=== PATIENT | male | born 1950 | race Caucasian/White ===

== ENCOUNTER → 2020-11-02 14:45 | Outpatient (CLI) | payer MEDICARE, SELFPAY ==
[2020-11-02 15:20] LABS: BNP,B-Type NATRIURETIC PEPTIDE 1481.4 pg/mL (0-100)
== END ==
PROVIDERS: PCP Internal Medicine; Referring Provider Nurse Practitioner; Visit Provider Nurse Practitioner
DX: R06.02 Shortness of breath (principal); R53.81 Other malaise; R53.83 Other fatigue; M79.89 Other specified soft tissue disorders
CPT/HCPCS: 83880

== ENCOUNTER 2021-02-08 05:51 | Inpatient (IN) | payer MEDICARE, SELFPAY ==
[2021-02-08] VITALS (57 sets, daily range): BP systolic 78–131; BP diastolic 33–81; PULSE 28–87; RESP 10–34; TEMP 29.4–36.2; O2SAT 76–100; BMI 32.2; BMI 33.7
--- NOTE | 2021-02-08 06:03 | ED.RN ---
CALLED FOR EKG PER RN REQUEST, NO OLD EKGS IN MUSE
--- NOTE | 2021-02-08 06:08 | EKG12_ITS ---
Test Reason : HEART RATE Blood Pressure : / mmHG Vent. Rate : 086 BPM Atrial Rate : 082 BPM P-R Int : 000 ms QRS Dur : 118 ms QT Int : 464 ms P-R-T Axes : 000 -44 126 degrees QTc Int : 555 ms Accelerated Junctional rhythm with occasional Premature ventricular complexes Left axis deviation Incomplete right bundle branch block Marked ST abnormality, possible lateral subendocardial injury Prolonged QT Inferior [place], age undetermined, cannot be excluded Abnormal ECG Confirmed by STACEY CAO, MARGARITO ([id number]), manager editorial HAIDER PEREA ([id number] on 02/15/2021 8:21:06 AM Referred By: SHANNA Confirmed By:MARGARITO IBARRA MD
[2021-02-08] MEDS: Dextrose 50%-Water 25 GM/50 ML DISP.SYRIN IV ×2 (06:10→07:55)
--- NOTE | 2021-02-08 06:12 | RAD_ITS ---
STUDY: X-RAY CHEST REASON FOR EXAM: Male, 70 years old. Hypoxia TECHNIQUE: Single AP portable view of the chest. COMPARISON: None. FINDINGS: There are small to moderate bilateral pleural effusions with overlying atelectasis or infiltration in the lower lobes bilaterally. There is interstitial prominence noted of the lung mcduffie which may represent CHF. The heart is enlarged. Normal mediastinum and chaparro. Normal visualized aortic arch and descending thoracic aorta. There are no demonstrated acute fractures or destructive bone lesions. There is no demonstrated abnormality of the visualized soft tissue structures of the upper abdomen. RAD/Chest 1 View (Portable) IMPRESSION: Bilateral pleural effusions with overlying atelectasis or infiltration in the lower lung mcduffie. Interstitial prominence, possibly representing CHF. Cardiomegaly. Electronically Signed: Manpreet Adair MD at 7:52 EDT , Service support ,
--- NOTE | 2021-02-08 06:12 | EKG12_ITS ---
Test Reason : HEART RATE Blood Pressure : / mmHG Vent. Rate : 080 BPM Atrial Rate : 073 BPM P-R Int : 000 ms QRS Dur : 120 ms QT Int : 454 ms P-R-T Axes : 000 230 047 degrees QTc Int : 523 ms Suspect arm lead reversal, interpretation assumes no reversal Wide QRS rhythm Right bundle branch block Lateral infarct , age undetermined Inferior infarct , age undetermined Abnormal ECG Recommend Repeat EKG Confirmed by STACEY CAO, MARGARITO ([id number]), film editor supervisor RONA ROCHA ([id number]) on 02/10/2021 12:41:06 PM Referred By: SHANNA Confirmed By:MARGARITO IBARRA MD
[2021-02-08 06:17] LABS: Absolute Lymphocyte Count 0.63 X10^3/uL (0.83-4.51); Absolute Neutrophil Count 5.5 X10^3/uL (2.0-7.7); Basophil# 0.01 X10^3/uL; Basophil% 0.1 % (0-1); Eosinophil# 0.04 X10^3/uL; Eosinophils% 0.6 % (0-5); Hematocrit 35.5 % (40-54); Hemoglobin 10.6 g/dL (13.0-16.5); Lymphocyte # 0.63 X10^3/ul (4.0); Lymphocyte % 9.4 % (19-41); Mean Corp Hgb Conc 29.9 g/dL (32-36); Mean Corpuscular Hgb 30.1 pg (27.0-32.0); Mean Corpuscular Volume 100.9 fL (80-94); Mean Platelet Vol. 12.6 fl (6.2-12.0); Monocyte# 0.49 X10^3/uL; Monocyte% 7.3 % (0-10); NRBC Flagged by Analyzer 0.3 % (0-5); Neutrophil # 5.48 X10^3/uL (2.7-7.7); Neutrophil % 82.3 % (47-70); POSITIVE MORPHOLOGY YES; Platelet Count 125 K/mm3 (150-450); RBC Distribution Width CV 18.9 % (11.6-14.6); RBC Distribution Width SD 70.2 fl (35.1-43.9); Red Blood Count 3.52 M/mm3 (4.6-6.2); White Blood Count 6.7 K/mm3 (4.4-11.0)
[2021-02-08 06:18] LABS: Differential Indicated SCAN CRITERIA MET
--- NOTE | 2021-02-08 06:18 | ED.DCSUM_ITS ---
History of Present Illness Chief Complaint: Weakness Informant: Patient, Family Narrative: Patient is a 70-year-old male with a past medical history of CAD, hypertension, CKD, diabetes who presents to the emergency department for multiple issues. The at bedside provides majority of the history. She states that ever since getting coronavirus infection in September he has progressively been getting worse. These new issues have been possibly getting worse over the past few weeks to a month. He has not had a bowel movement in the past week. They have been giving him MiraLAX and magnesium citrate which has not helped. He has been eating very little since he got the Covid infection. For the past few weeks he has been very slow with his responses. He has been getting generally weaker and not able to ambulate around the house anymore. He has had significant swelling of his lower extremities. Recently he had a televisit with his PCP and was diagnosed with anasarca and put on doxycycline for lower extremity cellulitis. Patient has been on 3 L of supplemental oxygen since September although they have increased this due to low pulse ox at home lately. They have also noticed that his heart rate was very on the pulse ox today. At time of arrival patient is alert and oriented but is very delayed with his responses. He denies having any pain or shortness of breath. No chest pain, palpitations. He denies any abdominal pain. He denies any headache. No nausea or vomiting. He has not been coughing. He is alert but take some time to answer questions. Past Medical History - Allergies and Home Meds Allergies/Adverse Reactions: Allergies No Known Allergies Allergy (Verified 02/08/21 06:01) Primary Care Physician: Dallas Nance MD [Primary Care Provider] - Prior records reviewed: Yes Surgical History: vitrectomy of the left eye, kidney stone removal with basket extraction Smoking Status: Never smoker Review of Systems All systems negative except as indicated General: Denies: Chills, Fever Eyes: Denies: Visual changes - bilaterally, Diplopia ENT: Denies: Rhinorrhea, Sore throat Cardiovascular: Denies: Chest pain, Palpitations Respiratory: Reports: Dyspnea. Denies: Cough, Dyspnea on exertion Gastrointestinal: Reports: Constipation. Denies: Abdominal pain, Nausea, Vomiting, Diarrhea Genitourinary: Denies: Dysuria, Hematuria, Frequency Musculoskeletal: Reports: Swelling. Denies: Back pain, Extremity Pain Skin: Denies: Rash, Wounds Neurological: Denies: Headache, Weakness, Numbness Physical Exam Vital Signs/Narrative: Vital Signs Temp Pulse Resp BP Pulse Ox 02/08/21 06:16 23 H 88 02/08/21 06:01 89 02/08/21 05:52 84.9 F L 36 L 20 H 106/81 H 87 Inital Vital Signs reviewed: Yes General: Well nourished, Well developed Head: Normocephalic, Atraumatic Eyes: Perrl, EOMI ENT: No rhinorrhea Neck: Supple, Nontender Cardiovascular: Regular rhythm, No murmurs, Bradycardia Respiratory: No distress, CTA bilaterally, Chest nontender Abdomen: Soft, Nontender, Nondistended Back: Nontender Extremities: Nontender, Edema - 3+ pitting edema bilaterally. There is some surrounding erythema and small open ulcers. Skin: Pallor Neurological: Alert, Oriented x3, Cranial nerves II-XII grossly intact, Normal Strength, Normal Sensation, - - Very delayed but appropriate responses. Negative for: Left side facial droop, Right side facial droop Psychological: - - Flat affect Diagnostic/Tx/Re-eval - EKG Initial EKG Interpretation: - - Rate of 35 bpm in sinus bradycardia with first-degree AV block. MS interval of 304. Has a prolonged QRS of 186. There is a QTC of 561. There are T wave inversions in the inferior and lateral leads. No significant ST elevations or depressions. - Medical Decision Making Patient presents to the ED for multiple issues. The majority the issues have been going on for multiple weeks to a month. The main concerns were weakness, lack of bowel movement, low heart rate and hypoxia. Upon arrival he is hypothermic, bradycardic. His heart rate is in the 30s but blood pressure is stable currently. He does not have any complaints. On exam he has significant peripheral edema of the lower extremities. Lab work is being obtained including blood cultures, lactic acid, TSH. He is satting 88% on his baseline O2 and will check an ABG as there is a poor waveform. His oxygen is increased from the baseline of 3 L to 6 L. Ichgc-rk-piir glucose was obtained and was 50. He is given a half an amp of D50. He did take his insulin this morning. Due to the hypothermia fully temperature probe being placed. Will externally warmed patient with warm blankets and bear hugger. The family states that they keep the house warm and he has not been outside. With the unexplained hypothermia will cover with broad-spectrum antibiotics. Will check CT scan of the head due to the delayed response and issues with the vitals. Will obtain CT scan of the chest to evaluate for pulmonary embolism given his Covid history and now hypoxic. Will check CT scan of the abdomen/pelvis to evaluate for bowel obstruction given the lack of movement. At this time patient will be signed out to oncoming physician. Did speak with the patient and his that patient will end up needing admission for his multiple issues. ED Disposition - Plan for ED Patient: Disposition: Acute Care Hospital [facility] Diagnosis: Hypothermia, Bradycardia, Hypoxia, RENETTA (acute kidney injury) Referrals: Dallas Nance MD [Primary Care Provider] -
[2021-02-08 06:31] LABS: Anisocytosis 1+; Differential Comment SCANNED; Macrocytosis 1+
[2021-02-08 06:32] LABS: Microcytosis RARE
[2021-02-08 06:33] LABS: Acanthocytes RARE
[2021-02-08 06:36] LABS: Allen Test Positive; Base Excess 1 mmol/L (-2 to +2); Blood Gas Specimen Type ART; O2 Delivery Device Cannula; PO2 76 mmHG (75-100); SITE L Radial; SO2 94 % (95-99); Total Carbon Dioxide 27 mmol/L; pCO2 45.7 mmHg (35-45); pH 7.36 (7.35-7.45)
[2021-02-08 06:39] LABS: Thyroid Stim Hormone (TSH) 6.83 uIU/mL (0.358-3.74)
[2021-02-08 06:43] LABS: ALB/GLOB Ratio 0.9 RATIO (0.9-2.4); AST(SGOT) 30 U/L (15-37); Alanine Aminotransfer ALT/SGPT 55 U/L (16-61); Albumin, Serum 3.2 g/dL (3.2-5.0); Alkaline Phosphatase 153 U/L (45-117); Anion Gap 2 (5-15); BUN 54 mg/dL (7-18); Calcium,Total 8.6 mg/dL (8.5-10.1); Chloride 112 mmol/L (98-107); Creatinine, Serum 1.69 mg/dL (0.70-1.30); EST Glomerular Filtration Rate 43 mL/min (>60); Est Glom Filt Rate - Afr Amer 52 mL/min (>60); Globulin 3.4 g/dL (2.2-4.2); Glucose 47 mg/dL (74-106); Protein, Total 6.6 g/dL (6.4-8.2); Sodium Level 143 mmol/L (136-145)
[2021-02-08 06:44] LABS: Mucous, Urine 0 SEEN /hpf (<or=2+); Red Blood Cells-Urine 0 SEEN /hpf (0-5); Squamous Epithelial Cells - UA 0 SEEN /hpf (0-5); White Blood Cells 0 SEEN /hpf (0-5)
[2021-02-08 06:44] LABS: Lactic Acid 1.1 mmol/L (0.4-1.9)
[2021-02-08 06:45] LABS: Color, Urine Yellow (Yellow); Glucose, Dipstick Normal (Normal); Ketone-Dipstick Negative (Negative); Leukocyte Esterase-Dipstick Negative /ul (Negative); Nitrite-Dipstick Negative (Negative); Occult Blood-Urine Negative /ul (Negative); Protein-Dipstick 30 mg/dl (Negative); Specific Gravity, Urine 1.015 (1.002-1.030); Urine Bilirubin Dipstick Negative (Negative); Urine Clarity Clear (Clear); Urine Urobilinogen Normal (Normal)
[2021-02-08 06:51] LABS: Bacteria RARE /hpf (None Seen)
--- NOTE | 2021-02-08 06:56 | CT_ITS ---
STUDY: CTA CHEST REASON FOR EXAM: Male, 70 years old. Eval for PE. Weakness. RADIATION DOSAGE (If Supplied By Facility): CTDIvol = ( 24.37 ) mGy, DLP = ( 2277.92 ) mGycm TECHNIQUE: The examination was performed with the intravenous administration of IV 100mL Isovue-370. Post-processing of the angiographic images was performed, with multiplanar reformation and 3D reconstruction. Individualized dose optimization techniques were used for this CT. COMPARISON: None. FINDINGS: Normal enhancement of the main pulmonary artery and right and left pulmonary arteries. Normal enhancement of the bilateral peripheral pulmonary arteries. There is no demonstrated pulmonary embolism. There is atherosclerotic calcification of the aortic arch with tortuosity. There is no demonstrated aortic dissection. There is borderline cardiac cardiomegaly. Normal mediastinum. Normal hilar regions. Normal visualized trachea and bronchi. Moderate bilateral pleural effusions with bibasilar pulmonary infiltrates versus atelectasis. There is evidence of increased interstitial markings suggestive of CHF. There is thickening of the right major fissure. Normal chest wall structures. There are degenerative changes of thoracic spine. Normal visualized upper abdomen. CT/CTA Chest W/WO Contrast IMPRESSION: Moderate sized pleural effusions with bibasilar infiltrate/compressive atelectasis superimposed on mild degree of CHF. No evidence of pulmonary embolism. Electronically Signed: Ryan Wilcox MD at 8:27 EDT , Service support ,
--- NOTE | 2021-02-08 06:56 | CT_ITS ---
STUDY: CT BRAIN WITHOUT CONTRAST REASON FOR EXAM: Male, 70 years old. AMS. Altered mental status. RADIATION DOSAGE (If Supplied By Facility): CTDIvol = ( 44.99 ) mGy, DLP = ( 829.85 ) mGycm TECHNIQUE: Transaxial CT imaging of the brain was performed without administration of intravenous contrast material. Individualized dose optimization techniques were used for this CT. COMPARISON: No relevant priors. FINDINGS: Normal soft tissue structures. Normal calvarium. There is moderate cerebral atrophy with widening of the extra-axial spaces and ventricular dilatation. There are areas of decreased attenuation within the white matter tracts of the supratentorial brain, consistent with microvascular disease changes. Normal basal ganglia and thalami. Normal brainstem. There is mild cerebellar atrophy. There is no intracranial hemorrhage. There are no findings of an acute ischemic infarction. Atherosclerotic calcification of the vertebral arteries and cavernous portions of the internal carotid arteries bilaterally. Mucosal thickening of the maxillary sinuses bilaterally worse on the left side. CT/Brain/Head without Contrast IMPRESSION: Chronic involutional changes of the brain. Electronically Signed: Ryan Wilcox MD at 8:23 EDT , Service support ,
--- NOTE | 2021-02-08 06:57 | CT_ITS ---
STUDY: CT ABDOMEN AND PELVIS WITH CONTRAST REASON FOR EXAM: Male, 70 years old. No BM in 7 days RADIATION DOSAGE (If Supplied By Facility): CTDIvol = ( 24.37 ) mGy, DLP = ( 2277.92 ) mGycm TECHNIQUE: Transaxial images were obtained from the dome of the diaphragm to the symphysis pubis without oral contrast. IV 100mL Isovue-370 was administered. Sagittal and coronal images were reconstructed. Individualized dose optimization techniques were used for this CT. COMPARISON: None. FINDINGS: Lung bases: Moderate size bilateral pleural effusion with compressive changes (axial image 1 series 3). Heart: Coronary artery disease/stenting. Cardiomegaly. Liver: Hepatic steatosis. Gallbladder/biliary ducts: Unremarkable. Pancreas: Severe pancreatic atrophy. Spleen: Unremarkable. Adrenal glands: Unremarkable. Kidneys/ureters/bladder: Bilateral renal parenchymal atrophy. Malrotated kidneys. Nondilated ureters. Gloria catheter within the urinary bladder. Mild nonspecific right perirenal edema (axial image 64 series 3). Prostate: Prostate calcifications. Large bowel/small bowel: Moderate constipation. No perforation. No obstruction. No significant bowel wall thickening. Nondilated small bowel loops. Appendix: No secondary signs of acute appendicitis. Gastroesophageal junction/stomach: Tiny hiatal hernia. Retroperitoneum/lymph nodes: No intra-abdominal free air. Low volume ascites. No pathologically enlarged lymph nodes. Vascular: Vascular calcifications. No aneurysm. Osseous structures: Degenerative changes. No acute process. Subcutaneous/soft tissues: Diffuse body wall edema. CT/Abdomen/Pelvis WITH Contrast IMPRESSION: Constipation without acute bowel findings Gloria catheter in position without urinary tract obstruction (coronal urinalysis) CHF/third spacing with pleural effusions, body wall edema and mild ascites Bilateral renal parenchymal atrophy with malrotation (chronic kidney disease) Electronically Signed: Aristides Beasley DO at 8:26 EDT Tel , Service support ,
[2021-02-08 07:03] LABS: T4 Free Direct 1.02 ng/dL (0.76-1.46)
[2021-02-08 07:18] LABS: CPK Total, Creatine Kinase 100 U/L (39-308)
[2021-02-08 07:24] LABS: BNP,B-Type NATRIURETIC PEPTIDE 1083.9 pg/mL (0-100)
[2021-02-08 07:45] LABS: Bedside Glucose 50 mg/dL (70-110)
[2021-02-08 07:45] LABS: Bedside Glucose 64 mg/dL (70-110)
[2021-02-08 07:45] LABS: Bedside Glucose 81 mg/dL (70-110)
[2021-02-08] MEDS: 0.9% Normal Saline 1,000 ML 999 ML IV ×2 (07:49→08:12)
[2021-02-08] MEDS: Atropine Sulfate 1 MG/10 ML Syringe IV (07:49)
--- NOTE | 2021-02-08 08:35 | ED.RN ---
DR GARCIA INFORMED BP, HR AND TEMP INCREASING. SPO2 DECREASING ON NON-REBREATHER. DR GARCIA ORDERS BIPAP TO BE PLACED. CPS AWARE.
[2021-02-08 08:41] LABS: Bedside Glucose 143 mg/dL (70-110)
[2021-02-08 08:44] LABS: Free T3 1.4 pg/mL (2.18-3.98)
--- NOTE | 2021-02-08 08:44 | EKG12_ITS ---
Test Reason : DYSRHYTHMIA Blood Pressure : / mmHG Vent. Rate : 035 BPM Atrial Rate : 035 BPM P-R Int : 304 ms QRS Dur : 186 ms QT Int : 736 ms P-R-T Axes : 000 119 -87 degrees QTc Int : 561 ms Marked sinus bradycardia with 1st degree A-V block Right bundle branch block Left posterior fascicular block Bifascicular block Cannot rule out Inferior infarct , age undetermined T wave abnormality, consider lateral ischemia Abnormal ECG Confirmed by STACEY CAO, MARGARITO ([id number]), art editor HAIDER PEREA ([id number]) on 02/15/2021 8:21:18 AM Referred By: KEISHA Confirmed By:MARGARITO IBARRA MD
[2021-02-08 08:46] LABS: International Normalized Ratio 1.2; Prothrombin Time (Protime)PT. 14.7 SECONDS (11.7-14.9)
[2021-02-08 08:47] LABS: Partial Thromboplast Time 46.6 Seconds (24.1-36.2)
--- NOTE | 2021-02-08 08:54 | ED.RN ---
BIPAP STARTED SPO2 INCREASING TO 90%.
--- NOTE | 2021-02-08 08:58 | ED.RN ---
DR GARCIA PRESENT TO PLACE CENTRAL LINE.
--- NOTE | 2021-02-08 09:34 | RAD_ITS ---
STUDY: X-RAY CHEST REASON FOR EXAM: Male, 70 years old. Attempted central line placement. TECHNIQUE: Single AP portable view of the chest. COMPARISON: Comparison is made with prior examination done earlier today at 6:46 AM. FINDINGS: EKG electrodes are seen. Bilateral pleural effusions with infiltrates at the lung bases worse on the left side. Mild degree of the CHF. There is mild cardiac enlargement. Normal mediastinum and chaparro. Normal visualized pulmonary arteries. Normal visualized aortic arch and descending thoracic aorta. There are diffuse degenerative changes of the visualized thoracic spine. Normal visualized ribs, clavicles, and shoulders. There is no demonstrated abnormality of the visualized soft tissue structures of the upper abdomen. RAD/Chest 1 View (Portable) IMPRESSION: Bilateral pleural effusions with CHF and bibasilar infiltrates versus atelectasis. Electronically Signed: Ryan Wilcox MD at 9:53 EDT , Service support ,
--- NOTE | 2021-02-08 09:41 | NURSING ---
DR BAEZA FOR DR GARCIA
--- NOTE | 2021-02-08 09:47 | HP.PCM_ITS ---
Problem List (1) Cellulitis Status: Acute Qualifiers: Site of cellulitis: extremity Site of cellulitis of extremity: lower extremity Laterality: unspecified laterality Qualified Code(s): L03.119 - Cellulitis of unspecified part of limb (2) Leg ulcer Status: Acute Qualifiers: Laterality: unspecified laterality Non-pressure ulcer stage: limited to breakdown of skin Qualified Code(s): L97.901 - Non-pressure chronic ulcer of unspecified part of unspecified lower leg limited to breakdown of skin (3) Hypothermia Status: Acute Qualifiers: Encounter type: initial encounter Qualified Code(s): T68.XXXA - Hypothermia, initial encounter (4) Bradycardia Status: Acute (5) Hypoxia Status: Acute (6) RENETTA (acute kidney injury) Status: Acute (7) Bilateral pleural effusion Status: Acute (8) Acute respiratory failure with hypoxia Status: Acute (9) CAD (coronary artery disease) Status: Chronic Qualifiers: Coronary Disease-Associated Artery/Lesion type: [place] artery [place] vs. transplanted heart: [place] heart Associated angina: without angina Qualified Code(s): I25.10 - Atherosclerotic heart disease of [place] coronary artery without angina pectoris (10) CKD (chronic kidney disease) Status: Chronic Qualifiers: Chronic kidney disease stage: unspecified stage Qualified Code(s): N18.9 - Chronic kidney disease, unspecified (11) Hypertension Status: Chronic Qualifiers: Hypertension type: essential hypertension Qualified Code(s): I10 - Essential (primary) hypertension (12) Diabetes mellitus Status: Chronic Qualifiers: Diabetes mellitus type: type 2 Diabetes mellitus m[facility] insulin use: with supervisor intermediates use Diabetes mellitus complication status: with other specified complication Qualified Code(s): E11.69 - Type 2 diabetes mellitus with other specified complication; Z79.4 - terminal gauger supervisor (current) use of insulin History of Present Illness Date of Admission: 02/08/21 Chief Complaint: Shortness of breath - 2 months The patient is a 70 year old M with past medical history of CAD, Type 2 DM, hy pertension, CKD, gets most of his care in the [facility] comes in with progressive shortness of breath ongoing for 2 months, worse in the last couple of days. Patient is a poor historian, was seen in the ICU. History was taken from the ED physician and patient. Patient reportedly had a sick contact who had Covid in September. He never got tested but he is suspected to have had Covid. He had progressively required oxygen 3 L. Patient followed up with his primary care doctor via televisit and was diagnosed with anasarca and started on doxycycline for lower extremity cellulitis. He denied any fever or chills or chest pain. He admits to dizziness but no syncope or presyncope. Vitals show temperature of 84.9F, heart rate 36, blood pressure 106/81, respiratory 20, SPO2 87% on room air. WBC count 6.7, hemoglobin 10.6, platelet count 125, INR 1.2, sodium 143, potassium 5.0, chloride 112, bicarbonate 29, BUN 54, creatinine 1.69, lactic acid 1.1, q. 100, troponins negative, BNP up is 1083, TSH 6.83, T4 1.02, free T3 1.4, cortisol 34.1, UA unremarkable. Past Medical History Past Medical History (Chronic Problems): Chronic Problems CAD (coronary artery disease) (Chronic) CKD (chronic kidney disease) (Chronic) Hypertension (Chronic) Diabetes mellitus (Chronic) Redness (Chronic) right lower leg Swelling of joint of right ankle or foot (Chronic) Blister of right foot (Chronic) Allergies No Known Allergies Allergy (Verified 02/08/21 06:01) Home Medications: Ambulatory Orders Medication Instructions Recorded Amlodipine [Norvasc] 5 mg PO DAILY 02/08/21 Atenolol 100 mg PO DAILY 02/08/21 Atorvastatin Calcium [Lipitor] 20 mg PO QHS 02/08/21 Doxycycline 100 mg PO BID 02/08/21 Enalapril Maleate 20 mg PO DAILY 02/08/21 Furosemide [Lasix] 20 mg PO DAILY 02/08/21 Insulin Glargine,Hum.rec.anlog 18 unit SQ QHS 02/08/21 [Basaglar Kwikpen U-100] Metolazone 5 mg PO DAILY 02/08/21 Sour Spicer Extract [Tart Spicer 250 mg PO DAILY PRN PRN 02/08/21 Extract] Surgical History: no surgical history Psychiatric History: No pertinent psych hx Lives: Spouse/ Significant Other Smoking Status: Never smoker Tobacco Use: Non-smoker Alcohol: None Drugs: None - *Family History Maternal History Items: Unknown Paternal History Items: Unknown Review of Systems Constitutional: Denies: Anorexia, Chills, Fever, Night Sweats, Malaise, Weakness, Weight Change Eyes: Denies: Blurred vision, Cataracts, Conjunctivae Inflammation, Pain, Redness HEENT: Denies: Difficulty Hearing, Difficulty Swallowing, Head Aches, Hearing Changes, Sinus Congestion, Sinus Drainage, Sore Throat Cardiovascular: Reports: Light Headedness. Denies: Chest Pain, Orthopnea, Palpitations Respiratory: Reports: Shortness of Breath, Shortness of breath at rest, Shortness of breath upon exertion. Denies: Cough, Hemoptysis, Sputum production Gastrointestinal: Denies: Abdominal Pain, Constipation, Hematemesis, Hematochezia, Nausea, Vomiting Genitourinary: Denies: Dysuria, Frequency, Incontinence, Nocturia Musculoskeletal: Denies: Joint Pain, Joint stiffness, Joint swelling, Joint Tenderness Skin: Denies: Rash, Wounds Neurological: Denies: Numbness, Tingling, Focal weakness Psychiatric: Denies: Anxiety, Depression, Homicidal Ideations, Suicidal Ideations Hematologic/ Lymphatic: Denies: Easy Bruising, Easy Bleeding VTE Information - Inpt Only VTE Present on Admission: No VTE Pharm Prophylaxis ordered?: Yes Patient Problems: Active and Suspected Problems Hypothermia (Acute) Bradycardia (Acute) Hypoxia (Acute) RENETTA (acute kidney injury) (Acute) Bilateral pleural effusion (Acute) Acute respiratory failure with hypoxia (Acute) Cellulitis (Acute) Leg ulcer (Acute) - Physical Exam Vitals/I&O's: Vital Signs Temp Pulse Resp BP Pulse Ox 90.5 F L 76 20 H 117/68 100 02/08/21 09:43 02/08/21 09:43 02/08/21 09:43 02/08/21 09:43 02/08/21 09:43 Oxygen Flow Rate (L/min) 6 Oxygen Delivery Method Bi-pap Weight: 101.8 kg Body Mass Index (BMI) 32.2 Finger Stick Blood Glucose 81 Intake and Output for Last 24 Hours 02/06/21 02/07/21 02/08/21 23:59 23:59 23:59 Intake Total 432.95 / 432.95 Balance 432.95 / 432.95 General: Alert, Oriented x3, Cooperative, No apparent distress HEENT: Atraumatic, PERRLA, EOMI, Normocephalic Oral: Moist Mucosa Neck: Supple Lungs: Clear to auscultation, Normal air movement Cardiovascular: Regular rate, Regular Rhythm, Normal S1, Normal S2, No murmurs Abdomen: Bowel Sounds Present, Soft, Non Tender, Non-Distended, No Hepato- splenomegaly Extremities: Edema - bilateral edema +3 Skin: - - Bilateral leg excoriations, erythema, areas of superficial ulceration Musculoskeletal: No Tenderness to Palpation of Joints or Extremities Lymphatic: No Cervical, Supraclavicular, or Inguinal Adenopathy Neurological: Cranial nerves II-XII grossly intact, Neuro grossly intact Psych/Mental Status: Normal Affect, Appropriate Microbiology Past 72 Hours 02/08/21 08:47 Mucosa - Nose SARS-CoV-2 Antigen (Rapid) - Final Laboratory Results 02/08/21 06:05: WBC 6.7, RBC 3.52 L, Hgb 10.6 L, Hct 35.5 L, MCV 100.9 H, MCH 30.1, MCHC 29.9 L, RDW Std Deviation 70.2 H, RDW Coeff of Freddy 18.9 H, Plt Count 125 L, MPV 12.6 H, Immature Gran % (Auto) 0.300, Neut % (Auto) 82.3 H, Lymph % (Auto) 9.4 L, [place]ary % (Auto) 7.3, Eos % (Auto) 0.6, Baso % (Auto) 0.1, Absolute Neuts (auto) 5.5, Absolute Lymphs (auto) 0.63 L, Nucleated RBC % 0.3, Differential Comment SCANNED, Anisocytosis 1+, Microcytosis RARE, Macrocytosis 1+, Acanthocytes (Spur) RARE 02/08/21 06:05: Sodium 143, Potassium 5.0, Chloride 112 H, Carbon Dioxide 29.0, Anion Gap 2 L, BUN 54 H, Creatinine 1.69 H, Estim Creat Clear Calc 40.80, Est GFR (MDRD) Af Amer 52 L, Est GFR (MDRD) Non-Af 43 L, BUN/Creatinine Ratio 32.0 H , Glucose 47 L, Calcium 8.6, Total Bilirubin 0.90, AST 30, ALT 55, Alkaline Phosphatase 153 H, Troponin I < 0.015, Total Protein 6.6, Albumin 3.2, Globulin 3.4, Albumin/Globulin Ratio 0.9 02/08/21 06:05: Lactic Acid 1.1 02/08/21 06:05: TSH 6.83 H 02/08/21 06:05: B-Natriuretic Peptide 1083.9 H 02/08/21 06:05: Free T4 1.02 02/08/21 06:05: Total Creatine Kinase 100 02/08/21 06:05: POC Glucose 50 L 02/08/21 06:05: PT 14.7, INR 1.2, APTT 46.6 H 02/08/21 06:05: Free T3 pg/dL 1.4 L 02/08/21 06:28: Specimen Type ART, Sample Site L Radial, pH 7.36, Bicarbonate Actual 26.0, Total CO2 27, Base Excess 1, O2 Saturation 94 L, ABG pCO2 45.7 H, ABG pO2 76, Ronal Test Positive, O2 Delivery Device Cannula, Liter Flow 6.0 02/08/21 06:40: Urine Color Yellow, Urine Clarity Clear, Urine pH 5.0, Ur Specific [place] 1.015, Urine Protein 30 H, Urine Glucose (UA) Normal, Urine Ketones Negative, Urine Occult Blood Negative, Urine Nitrite Negative, Urine Bilirubin Negative, Urine Urobilinogen Normal, Ur Leukocyte Esterase Negative, Urine RBC 0 SEEN, Urine WBC 0 SEEN, Ur Squamous Epith Cells 0 SEEN, Urine Bacteria RARE, Urine Mucus 0 SEEN 02/08/21 06:44: POC Glucose 81 02/08/21 07:35: POC Glucose 64 L 02/08/21 08:38: POC Glucose 143 H Current Medications Sodium Chloride () 250 mls @ 15 mls/hr IV .[id number] PRN PRN Reason: Saline Flush Sodium Chloride () 250 mls @ 15 mls/hr IV .[id number] PRN PRN Reason: Additional IVPB Infusion Sodium Chloride 19.25 meq/Potassium Chloride 2.5 meq/Dextrose 256.0625 mls @ 50 mls/hr IV .Q5H8M [facility] Last Admin: 02/08/21 08:22 Dose: 50 mls/hr Documented by: Epinephrine HCl 1 mg/ Sodium (Chloride) 251 mls @ 153.311 mls/hr CONT INF .Q1H39M MILLIE; Protocol Last Admin: 02/08/21 08:22 Dose: 0.1 mcg/kg/min, 153.3 mls/hr Documented by: Assessment/Plan All Active Problems Hypothermia (Acute) Bradycardia (Acute) Hypoxia (Acute) RENETTA (acute kidney injury) (Acute) Bilateral pleural effusion (Acute) Acute respiratory failure with hypoxia (Acute) Cellulitis (Acute) Leg ulcer (Acute) 1. Acute hypothermia, unclear etiology, likely from lower extremity cellulitis/infection TSH is slightly elevated at 6.28 but free T4 and free T3 is normal. Cortisol levels are normal Patient currently being warmed with a bear hugger, will continue to monitor Continue on empiric antibiotics for now Follow-up on blood cultures 2. Bradycardia, hypotension, unclear etiology, status epinephrine/dobutamine drip EKG shows junctional rhythmn/bradycardia; troponins have been negative 2D-ECHO shows 45%, stage 1 diastolic dysfunction, mild global hypokinesis Cardiology consulted 3. Acute on chronic combined CHF, EF 45%, stage 1 diastolic dysfunction Admitting BNPep was 1083.9 Generalized edema/anasarca/bilateral pleural effusions, albumin 3.2 Continue with Lasix 40mg IV BID Hold oral lasix and metolazone 4. Hypoglycemia in a known type II DM patient on insulin, will hold insulin Continue with blood glucose checks every 6h 5. Hypertension, now hypotensive, would hold home amlodipine, atenolol, enalapril 6. RENETTA on CKD stage 3, previous creatinine in 2012 was 1.0, admitted creatinine 1.69 We will repeat BMP in a.m. 7. DVT prophylaxis with heparin subcu Inpatient E&M: 85993 Init Hosp L3
[2021-02-08 09:50] LABS: Bedside Glucose 155 mg/dL (70-110)
--- NOTE | 2021-02-08 09:50 | NURSING ---
ICU PAINTSIL CHF, BRADYCARDIA, RESP FAILURE
--- NOTE | 2021-02-08 09:55 | NURSING ---
ICU 3
--- NOTE | 2021-02-08 10:57 | PCM.RX.CS ---
Consult Pharmacy has been consulted to manage selected antiobiotic: Vancomycin Type of Consult: New start Suspected Infection: Other Prior Doses of Antibiotics Received/Current Regimen: Received 2000mg iv x 1 on 02.08.21. Labs: Sodium 143 mmol/L (136-145) 02/08/21 06:05 Potassium 5.0 mmol/L (3.5-5.1) 02/08/21 06:05 Chloride 112 mmol/L (98-107) H 02/08/21 06:05 Carbon Dioxide 29.0 mmol/L (21.0-32.0) 02/08/21 06:05 Anion Gap 2 (5-15) L 02/08/21 06:05 BUN 54 mg/dL (7-18) H 02/08/21 06:05 Creatinine 1.69 mg/dL (0.70-1.30) H 02/08/21 06:05 Est GFR (MDRD) Af Amer 52 mL/min (>60) L 02/08/21 06:05 Est GFR (MDRD) Non-Af 43 mL/min (>60) L 02/08/21 06:05 BUN/Creatinine Ratio 32.0 RATIO (10-20) H 02/08/21 06:05 Glucose 47 mg/dL (74-106) L 02/08/21 06:05 Microbiology: Microbiology 02/08/21 08:47 Mucosa - Nose SARS-CoV-2 Antigen (Rapid) - Final Weight used for dosin kg Estimated Creatinine Clearance: 41 ml/min Goal Trough: 15-20 mcg/mL Pharmacy Plan for Drug Dosing: Will start orders of 750mg iv q12h starting 12hrs after 2gm ER order. Trough level ordered for 4..21 before 4th cumulative dose. Pharmacy Service will continue to monitor and adjust dosing as required. Follow-Up Labs: Trough Vancomycin - 4.1.21 @1930 before 2000 dose
[2021-02-08 11:35] LABS: Bedside Glucose 139 mg/dL (70-110)
--- NOTE | 2021-02-08 11:51 | ECHOCS_ITS ---
Version 2 Reason For Study: SOB Procedure This was a 2D Doppler, Color Flow transthoracic echocardiogram. The study was technically difficult. Patient scanned supine on BiPAP. Exam performed portable in ICU/CCU. Left Ventricle Normal LV size. The estimated ejection fraction is 45 %. Mild global left ventricular systolic dysfunction. Stage 1 diastolic dysfunction. There is mild global hypokinesis of the left ventricle. Right Ventricle Normal RV size. Normal systolic function. Atria The left atrium is mildly enlarged. Normal right atrium. Mitral Valve There is mild to moderate mitral annular calcification. Mild (1+) eccentric mitral valve insufficiency. Tricuspid Valve Normal tricuspid valve. Mild (1+) tricuspid valve insufficiency. Pulmonary artery systolic pressure is 35 mmHg. Aortic Valve Moderate focal aortic valve calcification. Peak aortic valve gradient 33 mmHg. Mean aortic valve gradient 20 mmHg. Mild (1+) aortic valve insufficiency. Pulmonic Valve The pulmonic valve is not well visualized. Great Vessels Normal aortic root. The pulmonary artery is normal size. Normal inferior vena cava. Pericardium/Pleural No pericardial effusion. Medication Diluted definity 2ml given slow IV push to enhance endocardial definition. MMode/2D Measurements & Calculations LVIDd: 5.3 cm IVSd: 1.1 cm LVOT diam: 2.0 cm LVIDs: 4.1 cm LVPWd: 1.2 cm RVDd: 4.2 cm FS: 22.3 % LVOT area: 3.2 cm2 Ao root diam: 2.9 cm LAV(MOD-bp): 76.3 ml LA A4 area: 24.9 cm2 LAV(MOD-bp) Indexed: 34.1 ml/m2 LAV(MOD-sp2): 53.4 ml LAV(MOD-sp4): 83.5 ml LA dimension(2D): 5.2 cm RA A4 area: 21.8 cm2 Doppler Measurements & Calculations MV E max michael: 80.9 cm/sec Lat Peak E' Michael: 5.2 cm/sec Med Peak E' Michael: 3.4 cm/sec MV A max michael: 84.3 cm/sec E/E' lat: 15.6 E/E' med: 24.1 MV E/A: 0.96 Ao V2 max: 289.0 cm/sec LV V1 max: 94.2 cm/sec SV(LVOT): 69.6 ml Ao max P.5 mmHg LV V1 max P.6 mmHg Ao V2 mean: 209.0 cm/sec LV V1 mean P.9 mmHg Ao mean P.5 mmHg LV V1 mean: 64.6 cm/sec Ao V2 VTI: 71.5 cm LV V1 VTI: 21.7 cm EDGARDO(I,D): 0.97 cm2 EDGARDO(V,D): 1.0 cm2 PA V2 max: 88.6 cm/sec TR max michael: 280.7 cm/sec TR max P.7 mmHg ECHO/Echo Complete W/ Contrast Interpretation Summary Normal LV size. The estimated ejection fraction is 45 %. Mild global left ventricular systolic dysfunction. Stage 1 diastolic dysfunction. Moderate focal aortic valve calcification. Mean aortic valve gradient 20 mmHg. Mild (1+) aortic valve insufficiency. Contrast injection was performed. Ordering Physician: Monica López Referring Physician: Dallas Nance M.D. Performed By: Cara Rashid RDCS
[2021-02-08] MEDS: DOPamine IV 800 MG/250 ML IV.SOLN. 10 MG CONT INF (12:01)
[2021-02-08] MEDS: Furosemide 40 MG/4 ML Vial IV (12:05)
--- NOTE | 2021-02-08 12:27 | NURSING ---
this RN and GIOVANNI Maurer obtained consent for medical records and PICC insertion from Eloina, daughter, at this time.
--- NOTE | 2021-02-08 13:19 | EKG12_ITS ---
Test Reason : IRREGULAR Blood Pressure : / mmHG Vent. Rate : 068 BPM Atrial Rate : 059 BPM P-R Int : 000 ms QRS Dur : 164 ms QT Int : 506 ms P-R-T Axes : 000 116 -60 degrees QTc Int : 538 ms Atrial fibrillation Right bundle branch block T wave abnormality, consider inferolateral ischemia or digitalis effect Abnormal ECG When compared with ECG of 08-FEB-2021 08:44, MANUAL COMPARISON REQUIRED, DATA IS UNCONFIRMED Confirmed by MARGARITA CAO, GABRIEL ([id number]), editorial director RONA ROCHA ([id number]) on 02/09/2021 2:07:30 PM Referred By: ARYAN Confirmed By:GABRIEL AVILA MD
--- NOTE | 2021-02-08 13:35 | EKG12_ITS ---
Test Reason : Blood Pressure : / mmHG Vent. Rate : 071 BPM Atrial Rate : 071 BPM P-R Int : 274 ms QRS Dur : 004 ms QT Int : 222 ms P-R-T Axes : -59 000 221 degrees QTc Int : 241 ms Unusual P axis, possible ectopic atrial rhythm with Premature ventricular complexes or Fusion complex es Indeterminate axis Nonspecific T wave abnormality Abnormal ECG When compared with ECG of 08-FEB-2021 15:46, MANUAL COMPARISON REQUIRED, DATA IS UNCONFIRMED Confirmed by MARGARITA CAO, GABRIEL ([id number]), editor book RONA ROCHA ([id number]) on 02/09/2021 2:02:11 PM Referred By: Confirmed By:GABRIEL AVILA MD
--- NOTE | 2021-02-08 13:50 | PCM.CON.CC ---
Problem List (1) Bilateral pleural effusion Status: Acute (2) Acute respiratory failure with hypoxia Status: Acute (3) Hypothermia Status: Acute Qualifiers: Encounter type: initial encounter Qualified Code(s): T68.XXXA - Hypothermia, initial encounter (4) Bradycardia Status: Acute (5) Hypoxia Status: Acute (6) RENETTA (acute kidney injury) Status: Acute (7) Redness Status: Chronic Comment: right lower leg (8) Swelling of joint of right ankle or foot Status: Chronic Reason for Consult Date of Consultation: 02/08/21 Reason for Consultation: Hypothermia History of Present Illness: The patient is a 70 year old M with past medical history listed below, who presented to [facility] on 02/08/2021 secondary to multiple issues. Family is not at the bedside and patient is a poor historian, so most of the history is from the electronic medical record. Patient reportedly had a COVID-19 infection in September and has progressively been getting worse. Patient reportedly has had difficulty with constipation despite treatment with MiraLAX and mag citrate. Patient reportedly has had very poor appetite and has been slow with his responses. Patient generally has been getting weaker and has not been ambulating around his home. Patient does come from home, but has had significant swelling of his lower extremities. Patient recently had a televisit with his PCP and was noted to have anasarca and was placed on doxycycline for reported lower extremity cellulitis. Patient reportedly has been on supplemental oxygen since his COVID-19 infection, but this has been increased recently secondary to hypoxia. Patient is slower to respond, but has no specific complaints at this time. In the ER, patient was noted to be hypothermic at 84.9 ?F, bradycardic at 36 and hypoxic at 87%. EKG showed sinus bradycardia with a first AV block and incomplete right bundle. Patient also had QT prolongation. Laboratory work-up did not show any significant leukocytosis, but patient did have a hemoglobin of 10.6 and a platelet count of 125. Coagulation studies were within normal limits. Saturations were good on initial ABG on 6 L nasal cannula. Patient did have some renal dysfunction with a BUN of 54, creatinine of 1.7. BNP was elevated at 1083. TSH was elevated at 6.8, but T4 was normal and T3 was low at 1.4. UA was unremarkable. Patient did have some hypoglycemia on presentation at 64. Patient was then became hypotensive. Patient had a central line attempted, but was unable to cannulate. Patient was placed on epinephrine drip and BiPAP therapy. Patient was then transferred to the intensive care unit for further evaluation. Since being in the intensive care unit, patient has been slow to respond, but appropriate. Patient is aware that he is at [facility] and is able to give his date of . Patient is not able to provide much additional history at this time. Patient is on BiPAP at 100% FiO2 to maintain saturations. Patient has had a stat echocardiogram, before results are still pending. Patient was transitioned over to dopamine from epinephrine. PICC line has been ordered, but not placed at this time. Patient's temperature is slowly improving. Unable to obtain a review of systems secondary to mental status. Past Medical History Past Medical History (Chronic Problems): Chronic Problems Redness (Chronic) right lower leg Swelling of joint of right ankle or foot (Chronic) Blister of right foot (Chronic) Allergies No Known Allergies Allergy (Verified 02/08/21 06:01) Home Medications: Ambulatory Orders Medication Instructions Recorded Amlodipine [Norvasc] 5 mg PO DAILY 02/08/21 Atenolol 100 mg PO DAILY 02/08/21 Atorvastatin Calcium [Lipitor] 20 mg PO QHS 02/08/21 Doxycycline 100 mg PO BID 02/08/21 Enalapril Maleate 20 mg PO DAILY 02/08/21 Furosemide [Lasix] 20 mg PO DAILY 02/08/21 Insulin Glargine,Hum.rec.anlog 18 unit SQ QHS 02/08/21 [Basaglar Kwikpen U-100] Metolazone 5 mg PO DAILY 02/08/21 Sour Spicer Extract [Tart Spicer 250 mg PO DAILY PRN PRN 02/08/21 Extract] Surgical History: vitrectomy of the left eye, kidney stone removal with basket extraction Smoking Status: Never smoker Review of Systems Unable to obtain accurate/complete ROS d/t: Mental status Patient Problems: Active and Suspected Problems Hypothermia (Acute) Bradycardia (Acute) Hypoxia (Acute) RENETTA (acute kidney injury) (Acute) Bilateral pleural effusion (Acute) Acute respiratory failure with hypoxia (Acute) Objective: All imaging was personally reviewed. Patient with significant pleural effusions and compressive atelectasis on CT of the chest, but no PE is appreciated. Echocardiogram reportedly has an EF around 45% with no tamponade. CT of the abdomen shows constipation with bowel edema. Patient does not have a significant amount of data to review from prior visits. - Physical Exam Vitals/I&O's: Vital Signs Temp Pulse Resp BP Pulse Ox 34.4 C L 51 L 20 H 103/78 90 02/08/21 13:00 02/08/21 13:00 02/08/21 13:00 02/08/21 13:00 02/08/21 13:00 Oxygen Flow Rate (L/min) 6 Oxygen Delivery Method Bi-pap Weight: 106.6 kg Body Mass Index (BMI) 33.7 Finger Stick Blood Glucose 81 Intake and Output for Last 24 Hours 02/06/21 02/07/21 02/08/21 23:59 23:59 23:59 Intake Total 2487.92 / 2487.92 Output Total 550 / 550 Balance 1937.92 / 1937.92 General: Alert, Oriented x3, Cooperative, No apparent distress - On BiPAP, - - Anasarca. Pale appearance. HEENT: Atraumatic, PERRLA, EOMI, Normocephalic, - - No scleral icterus or injection noted. Pale conjunctive a Oral: No Gingival or Mucosal Lesions/ Ulcerations, Dry Mucosa, - - Crowded posterior pharynx Neck: Supple, No JVD, No Nodes, Trachea Midline Lungs: No rhonchi, No wheeze, No rales, Diminished - Bilaterally, - - Dullness to percussion bilaterally residential up the chest Cardiovascular: Normal S1, Normal S2, No murmurs, Irregular Rate, No rub noted, No Gallop, - - Patient currently in atrial fibrillation on the monitor Abdomen: Soft, Non Tender, Non-Distended, Hypoactive Bowel Sounds, Obese Extremities: No clubbing, No cyanosis, Edema Skin: Ulcer/ Wound - Multiple superficial ulcers noted on the anterior aspect of bilateral lower extremities Musculoskeletal: No Tenderness to Palpation of Joints or Extremities Lymphatic: No Cervical, Supraclavicular, or Inguinal Adenopathy Neurological: Cranial nerves II-XII grossly intact, Neuro grossly intact, Motor Exam 5/5 strength throughout Psych/Mental Status: Appropriate, Flat Affect Microbiology Past 72 Hours 02/08/21 08:47 Mucosa - Nose SARS-CoV-2 Antigen (Rapid) - Final Laboratory Results 02/08/21 06:05: WBC 6.7, RBC 3.52 L, Hgb 10.6 L, Hct 35.5 L, MCV 100.9 H, MCH 30.1, MCHC 29.9 L, RDW Std Deviation 70.2 H, RDW Coeff of Freddy 18.9 H, Plt Count 125 L, MPV 12.6 H, Immature Gran % (Auto) 0.300, Neut % (Auto) 82.3 H, Lymph % (Auto) 9.4 L, [place] % (Auto) 7.3, Eos % (Auto) 0.6, Baso % (Auto) 0.1, Absolute Neuts (auto) 5.5, Absolute Lymphs (auto) 0.63 L, Nucleated RBC % 0.3, Differential Comment SCANNED, Anisocytosis 1+, Microcytosis RARE, Macrocytosis 1+, Acanthocytes (Spur) RARE 02/08/21 06:05: Sodium 143, Potassium 5.0, Chloride 112 H, Carbon Dioxide 29.0, Anion Gap 2 L, BUN 54 H, Creatinine 1.69 H, Estim Creat Clear Calc 40.80, Est GFR (MDRD) Af Amer 52 L, Est GFR (MDRD) Non-Af 43 L, BUN/Creatinine Ratio 32.0 H, Glucose 47 L, Calcium 8.6, Total Bilirubin 0.90, AST 30, ALT 55, Alkaline Phosphatase 153 H, Troponin I < 0.015, Total Protein 6.6, Albumin 3.2, Globulin 3.4, Albumin/Globulin Ratio 0.9 02/08/21 06:05: Lactic Acid 1.1 02/08/21 06:05: TSH 6.83 H 02/08/21 06:05: B-Natriuretic Peptide 1083.9 H 02/08/21 06:05: Free T4 1.02 02/08/21 06:05: Total Creatine Kinase 100 02/08/21 06:05: POC Glucose 50 L 02/08/21 06:05: PT 14.7, INR 1.2, APTT 46.6 H 02/08/21 06:05: Free T3 pg/dL 1.4 L 02/08/21 06:28: Specimen Type ART, Sample Site L Radial, pH 7.36, Bicarbonate Actual 26.0, Total CO2 27, Base Excess 1, O2 Saturation 94 L, ABG pCO2 45.7 H, ABG pO2 76, Ronal Test Positive, O2 Delivery Device Cannula, Liter Flow 6.0 02/08/21 06:40: Urine Color Yellow, Urine Clarity Clear, Urine pH 5.0, Ur Specific [place] 1.015, Urine Protein 30 H, Urine Glucose (UA) Normal, Urine Ketones Negative, Urine Occult Blood Negative, Urine Nitrite Negative, Urine Bilirubin Negative, Urine Urobilinogen Normal, Ur Leukocyte Esterase Negative, Urine RBC 0 SEEN, Urine WBC 0 SEEN, Ur Squamous Epith Cells 0 SEEN, Urine Bacteria RARE, Urine Mucus 0 SEEN 02/08/21 06:44: POC Glucose 81 02/08/21 07:35: POC Glucose 64 L 02/08/21 08:38: POC Glucose 143 H 02/08/21 09:45: POC Glucose 155 H 02/08/21 11:00: Troponin I < 0.015 02/08/21 11:11: POC Glucose 139 H 02/08/21 13:25: Troponin I 0.032 Current Medications Acetaminophen (Acetaminophen 325 Mg Tablet) 650 mg PO Q6H PRN PRN PRN Reason: Pain Score 1-10/Temp > 100.7 F Albuterol Sulfate (Albuterol 2.5 Mg/3 Ml Vial.Neb.) 2.5 mg INHALATION Q2H PRN PRN PRN Reason: SOB/Wheezing Dextrose (Dextrose 50%-Water 25 Gm/50 Ml Disp.Syrin) 0 gm IV X1 PRN; Protocol PRN Reason: Hypoglycemia Glucagon (Glucagon 1 Mg/Ml Syringe) 1 mg IM .X1 PRN PRN Reason: Hypoglycemia Heparin Sodium (Porcine) (Heparin Injection (Vial) 5,000 Unit/Ml Vial) 5,000 unit SC Q8 [facility] Hydrocortisone Sodium Succinate (Hydrocortisone Sod Succinate 100 Mg/2 Ml Vial) 100 mg IV Q8 [facility] Vancomycin IV Pharmacy to Dose (1 each/ Sodium Chloride) 500 mls @ 250 mls/hr IV PRN PRN; Protocol PRN Reason: Rx to Dose Piperacillin Sod/Tazobactam (Sod 3.375 gm/ Sodium Chloride) 50 mls @ 12.5 mls/hr IV Q8 [facility] Last Admin: 02/08/21 13:48 Dose: 12.5 mls/hr Documented by: Vancomycin HCl 750 mg/ Sodium (Chloride) 265 mls @ 250 mls/hr IV Q12H MILLIE Dopamine HCl/Dextrose () 800 mg in 250 mls @ 9.994 mls/hr CONT INF .Q25H1M MILLIE; Protocol Last Titration: 02/08/21 13:00 Dose: 10 mcg/kg/min, 20 mls/hr Documented by: Sodium Chloride () 250 mls @ 15 mls/hr IV .[id number] PRN PRN Reason: Saline Flush Sodium Chloride () 250 mls @ 15 mls/hr IV .[id number] PRN PRN Reason: Additional IVPB Infusion Insulin Human Lispro (Insulin Lispro 100 Unit/Ml Insuln.Pen) 0 unit SC Q6 MILLIE; Protocol Last Admin: 02/08/21 11:28 Dose: Not Given Documented by: Magnesium Hydroxide (Magnesium Hydroxide 30 Ml Udc) 30 ml PO DAILY PRN PRN PRN Reason: Constipation Nitroglycerin (Nitroglycerin (Inpatient Use) 0.4 Mg Tab.Subl) 0.4 mg SL Q5M PRN PRN Reason: CARDIAC/CHEST PAIN Ondansetron HCl (Ondansetron 4 Mg/2 Ml Vial) 4 mg IV Q8H PRN PRN PRN Reason: NAUSEA/VOMITING Psyllium Hydrophilic Mucilloid (Psyllium 1 Packet) 1 packet PO DAILY PRN PRN PRN Reason: Constipation Sodium Chloride (0.9% Saline Lock 10 Ml Syringe) 10 - 40 ml IV UD PRN PRN Reason: SALINE FLUSH Clinical Impression(s) from Imaging Studies Chest X-Ray 02/08/21 06:12 IMPRESSION: Bilateral pleural effusions with overlying atelectasis or infiltration in the lower lung mcduffie. Interstitial prominence, possibly representing CHF. Cardiomegaly. Electronically Signed: Manpreet Adair MD at 7:52 EDT , Service support , Brain CT 02/08/21 06:56 IMPRESSION: Chronic involutional changes of the brain. Electronically Signed: Ryan Wilcox MD at 8:23 EDT , Service support , Chest CTA 02/08/21 06:56 IMPRESSION: Moderate sized pleural effusions with bibasilar infiltrate/compressive atelectasis superimposed on mild degree of CHF. No evidence of pulmonary embolism. 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 Electronically Signed: Ryan Wilcox MD at 9:53 EDT , Service support , Echocardiogram 02/08/21 11:51 Interpretation Summary Normal LV size. The estimated ejection fraction is 45 %. Mild global left ventricular systolic dysfunction. Stage 1 diastolic dysfunction. Moderate focal aortic valve calcification. Mean aortic valve gradient 20 mmHg. Mild (1+) aortic valve insufficiency. Contrast injection was performed. Ordering Physician: Monica López Referring Physician: Dallas Nance M.D. Performed By: Cara Rashid, DESTINEE Assessment/Plan Active and Suspected Problems Hypothermia (Acute) Bradycardia (Acute) Hypoxia (Acute) RENETTA (acute kidney injury) (Acute) Bilateral pleural effusion (Acute) Acute respiratory failure with hypoxia (Acute) RECOMMENDATIONS: 1. Transition from epinephrine to dopamine 2. Obtain random cortisol. Initiate stress dose steroids 3. Trial of diuretic therapy 4. Consult cardiology. Possible amiodarone 5. If anticoagulated for A. fib, recommend heparin drip given possible need for thoracentesis/paracentesis 6. External warming 7. Sliding scale insulin, hold baseline antihypertensives 8. Empiric antibiotics pending cultures IMPRESSIONS: 1. Acute hypoxic respiratory failure secondary to large bilateral pleural effusions Unclear etiology. Patient appears to have anasarca. Patient may have an element of pneumonia, but does not have any leukocytosis. Patient does have hypothermia, but it appears as though patient has compressive atelectasis. Continue BiPAP for now until patient is more hemodynamically stable. Patient will likely require a paracentesis/thoracentesis in the near future. Reasonable to attempt a diuretic challenge. Echocardiogram has been ordered. 2. Acute systolic congestive heart failure/new onset A. fib Patient with bilateral pleural effusions, anasarca and elevated BNP. Unclear if patient has a history of previous cardiac complications, but EKG does show a right bundle branch block. Cardiology will be consulted. Unclear if patient will need amiodarone, but would avoid beta-blockers as patient is currently requiring pressors secondary to problem #3. If patient is to be placed on anticoagulation, would recommend short acting medication such as heparin as patient will likely require interventions in the near future. 3. Shock, possible adrenal crisis Unclear etiology for patient's hypotension/bradycardia and hypothermia. Sepsis would be a concern. Patient has an elevated TSH with low T3, but normal T4. Attempting rewarming at this time. Patient has received empiric antibiotics. Will obtain a cortisol level and initiate on stress dose steroids. Patient does not have findings to suggest nephrotic syndrome with a normal albumin and UA. Continue pressors for now. PICC line has been ordered. Some concern for possible stricture leading to inability to cannulate right IJ. 4. Hypothermia Unclear etiology. Patient reportedly did not have any exterior exposure and was found in the house. Hypothyroidism, sepsis, adrenal crisis and malnutrition would be considerations. Patient did have some hypoglycemia on presentation, but hypothermia has persisted despite correction. 5. Anemia/obesity/advanced age Complicates care, management, recovery and prognosis. Paucity of previous lab data, but was anemic in 2011. Patient is obese, but does have anasarca. Patient reportedly is a full code, but this has not been verified with the . TIME: 65 minutes of critical care time spent addressing patient's acute hypoxic respiratory failure, CHF, new onset A. fib, shock, review of all data and collaboration with care team (11:30 AM to 2:10 PM) [phone]: [id number] Critical care first hour
--- NOTE | 2021-02-08 14:30 | EKG12_ITS ---
Test Reason : Blood Pressure : / mmHG Vent. Rate : 037 BPM Atrial Rate : 037 BPM P-R Int : 304 ms QRS Dur : 160 ms QT Int : 552 ms P-R-T Axes : 105 116 -62 degrees QTc Int : 433 ms Poor data quality, interpretation may be adversely affected Marked sinus bradycardia with 1st degree A-V block Non-specific intra-ventricular conduction block T wave abnormality, consider inferolateral ischemia Abnormal ECG No previous ECGs available Confirmed by MARGARITA CAO, GABRIEL ([id number]), editor at large RONA ROCHA ([id number]) on 02/09/2021 2:02:41 PM Referred By: Confirmed By:GABRIEL AVILA MD
--- NOTE | 2021-02-08 14:34 | NURSING ---
wound photo: left lower leg (anterior view)
--- NOTE | 2021-02-08 14:35 | NURSING ---
wound photo: left lower leg (medial view)
--- NOTE | 2021-02-08 14:36 | NURSING ---
wound photo: right lower leg
[2021-02-08] MEDS: Hydrocortisone Sod Succinate 100 MG/2 ML Vial IV (14:50)
[2021-02-08] MEDS: Heparin Injection (Vial) 5,000 UNIT/ML VIAL 5000 UNIT SC (14:50)
[2021-02-08 15:19] LABS: Magnesium 2.8 mg/dL (1.6-2.6)
--- NOTE | 2021-02-08 15:44 | EKG12_ITS ---
Test Reason : Blood Pressure : / mmHG Vent. Rate : 056 BPM Atrial Rate : 051 BPM P-R Int : 000 ms QRS Dur : 166 ms QT Int : 516 ms P-R-T Axes : 000 116 -68 degrees QTc Int : 497 ms Sinus Rhythm with PVC's Right bundle branch block T wave abnormality, consider inferolateral ischemia or digitalis effect Abnormal ECG When compared with ECG of 08-FEB-2021 13:19, MANUAL COMPARISON REQUIRED, DATA IS UNCONFIRMED Confirmed by MARGARITA CAO, GABRIEL ([id number]), editor in chief RONA ROCHA ([id number]) on 02/09/2021 2:03:18 PM Referred By: MARGARITA Confirmed By:GABRIEL AVILA MD
--- NOTE | 2021-02-08 15:46 | EKG12_ITS ---
Test Reason : Blood Pressure : / mmHG Vent. Rate : 059 BPM Atrial Rate : 000 BPM P-R Int : 000 ms QRS Dur : 068 ms QT Int : 292 ms P-R-T Axes : 000 000 040 degrees QTc Int : 289 ms Marked Sinus Rhythm Indeterminate axis Low voltage QRS Septal infarct , age undetermined Inferolateral injury pattern Confirmed by MARGARITA CAO, GABRIEL ([id number]), book or script editor RONA ROCHA ([id number]) on 02/09/2021 2:10:24 PM Referred By: Confirmed By:GABRIEL AVILA MD
--- NOTE | 2021-02-08 16:48 | RAD_ITS ---
STUDY: X-RAY CHEST REASON FOR EXAM: Male, 70 years old. PIC LINE TECHNIQUE: 1 view COMPARISON: Prior portable chest of 02/08/2021 at 9:27 AM. FINDINGS: Right PICC terminates in the distal superior vena cava at the atriocaval junction with no complication of line placement. Continued bilateral substantial pleural effusions. Improving pulmonary edema. Decrease cardiac size. Normal mediastinum and chaparro. Normal visualized pulmonary arteries. There is atherosclerotic calcification of the aortic arch with tortuosity. There are diffuse degenerative changes of the visualized thoracic spine. Normal visualized ribs, clavicles, and shoulders. There is no demonstrated abnormality of the visualized soft tissue structures of the upper abdomen. RAD/CXR for Line Placement IMPRESSION: Right PICC terminates in the distal superior vena cava with no complication of line placement. Improving congestive heart failure. Electronically Signed: Leonor Johansen MD at 17:58 EDT , Service support ,
--- NOTE | 2021-02-08 17:07 | NURSING ---
Pt was confused and combative. Nurse Vega remained at bedside to assist with positioning and provide emotional support.
[2021-02-08 17:35] LABS: Bedside Glucose 95 mg/dL (70-110)
--- NOTE | 2021-02-08 17:36 | CON.PCM_ITS ---
Reason for Consult Date of Consultation: 02/08/21 Reason for Consultation: Irregular heartbeat History of Present Illness: The patient is a 70 year old M with a past medical history of apparent coronary artery disease, hypertension, chronic kidney disease who presented to the emergency room with his . Apparently since getting the coronavirus infection in September he has been getting progressively worse. He appears to have multiple issues with being very slow to respond to questions and being weak. He has also developed significant lower extremity edema. He was noted to be bradycardic today on a blood pressure monitor and so was brought into the emergency room. From the emergency room he was admitted to the intensive care unit. He was hypotensive and an emergency echocardiogram was ordered to rule out cardiac tamponade. There was no evidence of tamponade physiology and no pericardial effusion his ejection fraction was globally reduced at approximately 45%. It was thought that he had gone into atrial fibrillation despite being on dopamine. At the time I saw him he appeared to be in sinus rhythm with frequent premature atrial and ventricular complexes. No evidence of atrial fibrillation was noted. [] Past Medical History Allergies/Adverse Reactions: Allergies No Known Allergies Allergy (Verified 02/08/21 06:01) Home Medications: Ambulatory Orders Medication Instructions Recorded Amlodipine [Norvasc] 5 mg PO DAILY 02/08/21 Atenolol 100 mg PO DAILY 02/08/21 Atorvastatin Calcium [Lipitor] 20 mg PO QHS 02/08/21 Doxycycline 100 mg PO BID 02/08/21 Enalapril Maleate 20 mg PO DAILY 02/08/21 Furosemide [Lasix] 20 mg PO DAILY 02/08/21 Insulin Glargine,Hum.rec.anlog 18 unit SQ QHS 02/08/21 [Basaglar Kwikpen U-100] Metolazone 5 mg PO DAILY 02/08/21 Sour Spicer Extract [Tart Spicer 250 mg PO DAILY PRN PRN 02/08/21 Extract] Past Medical History (Chronic Problems): Chronic Problems CAD (coronary artery disease) (Chronic) CKD (chronic kidney disease) (Chronic) Hypertension (Chronic) Diabetes mellitus (Chronic) Redness (Chronic) right lower leg Swelling of joint of right ankle or foot (Chronic) Blister of right foot (Chronic) Surgical History: no surgical history Psychiatric History: No pertinent psych hx - *Family History Maternal History Items: Unknown Paternal History Items: Unknown Lives: Spouse/ Significant Other Smoking Status: Never smoker Tobacco Use: Non-smoker Alcohol: None Drugs: None Review of Systems - Review of Systems General: Denies: Fever, Night Sweats, Fatigue HEENT: Denies: Vision Change Cardiovascular: Reports: Peripheral Edema. Denies: Chest Discomfort, Shortness of Breath, Orthopnea, PND, Palpitations, Lightheadedness, Dizziness, Near Syncope, Syncope Respiratory: Denies: Cough, Sputum Production, Hemoptysis Gastrointestinal: Reports: Constipation. Denies: Hematemesis, Hematochezia, Melena Genitourinary: Denies: Dysuria, Hematuria Skin: Denies: Rash Subjectve: Obese man in no distress Objective: Vital Signs Temp Pulse Resp BP Pulse Ox 97.1 F L 35 L 18 98/46 L 95 02/08/21 17:01 02/08/21 17:27 02/08/21 17:27 02/08/21 17:27 02/08/21 17:27 Oxygen Flow Rate (L/min) 6 Oxygen Delivery Method Bi-pap Weight: 235 lb 0.204 oz Body Mass Index (BMI) 33.7 Finger Stick Blood Glucose 81 Intake and Output for Last 24 Hours 02/06/21 02/07/21 02/08/21 23:59 23:59 23:59 Intake Total 2617.00 / 2617.00 Output Total 625 / 625 Balance / General: Awake, Alert, Oriented x 3, Obese HEENT: PERRL, EOMI, Sclera Non Icteric Neck: Supple, Good ROM, No Lymph Node Enlargement Lungs: Clear to auscultation Cardiovascular: Regular Rhythm, Normal S1, Normal S2, No Murmurs, No Rubs, No Gallops Murmur Murmur: Grade 2/6, Early Systolic, LLSB Vascular: No Carotid Bruits, Normal Femoral Pulses, Normal Radial Pulses, Normal Dorsalis Pedal Pulse, Normal Posterior Tibial Pulses Abdomen: Bowel Sounds Present, Soft, Non Tender, No HSM, No Organomegaly Extremities: No Cyanosis, No Clubbing, Bilateral Edema +3 Musculoskeletal: No Erythema Skin: No Rashes Neurological: No Focal Motor or Sensory Deficit 02/08/21 06:05: WBC 6.7, RBC 3.52 L, Hgb 10.6 L, Hct 35.5 L, MCV 100.9 H, MCH 30.1, MCHC 29.9 L, Plt Count 125 L, MPV 12.6 H, Immature Gran % (Auto) 0.300, Neut % (Auto) 82.3 H, Lymph % (Auto) 9.4 L, Davison % (Auto) 7.3, Eos % (Auto) 0.6, Baso % (Auto) 0.1, Absolute Neuts (auto) 5.5, Nucleated RBC % 0.3 02/08/21 06:05: Sodium 143, Potassium 5.0, Chloride 112 H, Carbon Dioxide 29.0, Anion Gap 2 L, BUN 54 H, Creatinine 1.69 H, Est GFR (MDRD) Af Amer 52 L, Est GFR (MDRD) Non-Af 43 L, BUN/Creatinine Ratio 32.0 H, Glucose 47 L, Calcium 8.6, Total Bilirubin 0.90, Troponin I < 0.015 02/08/21 06:05: Lactic Acid 1.1 02/08/21 06:05: B-Natriuretic Peptide 1083.9 H 02/08/21 06:05: PT 14.7, INR 1.2, APTT 46.6 H 02/08/21 06:28: pH 7.36, Bicarbonate Actual 26.0, Base Excess 1, O2 Saturation 94 L, ABG pCO2 45.7 H, ABG pO2 76, Ronal Test Positive 02/08/21 06:40: Urine Color Yellow, Urine Clarity Clear, Urine pH 5.0, Ur Specific [place] 1.015, Urine Protein 30 H, Urine Glucose (UA) Normal, Urine Ketones Negative, Urine Occult Blood Negative, Urine Nitrite Negative, Urine Bilirubin Negative, Urine Urobilinogen Normal, Ur Leukocyte Esterase Negative, Urine RBC 0 SEEN, Urine WBC 0 SEEN 02/08/21 11:00: Troponin I < 0.015 02/08/21 13:25: Troponin I 0.032 02/08/21 13:25: Magnesium 2.8 H Rhythm: Sinus bradycardia with a right bundle branch block. Intermittent PACs,: Follow-up EKGs demonstrate evidence of A-V dissociation suggestive of complete heart block EKG: Sinus bradycardia with a right bundle branch block ECHO: Global left ventricular systolic dysfunction estimated ejection fraction 45% Stress Test: Cardiac Cath: PCI: CT Surgery: Holter monitor: EPS: PPM: CXR: Chest CT Scan: Assessment/Plan 1. Symptomatic bradycardia * Patient presented with lethargy and is noted to have significant symptomatic bradycardia despite being on dopamine and epinephrine. I suspect the above is secondary to a multifactorial origin. He is on a very high dose of atenolol and with his renal dysfunction my suspicion is that he is not metabolizing this very well. Due to his progressive symptomatic bradycardia I would recommend at this time that we place a temporary pacemaker while we wait for his atenolol to wear off. Further recommendations will be made at that time. * The above was discussed by phone conversation with his family and they agree to proceed as an emergency basis. * Patient also noted to have elevated TSH and low free T3. Would recommend 1 dose of intravenous Synthroid * 2. History of hypertension * Patient is hypotensive at this particular time and would hold off on all antihypertensive agents. * 3. Mild left ventricular systolic dysfunction * I suspect the above may be on the basis of his beta-jose use. Certainly thyroid abnormalities including severe hypothyroidism could be accounting for some of the global dysfunction. * 4. Valvular heart disease * Patient has mild aortic stenosis and sclerosis * We will continue to monitor this. * * Thank you for allowing me to participate in the care of your patient. Please don't hesitate to call if any issues arise. * * Addendum at 1957 PM. Patient was brought down to the cardiac catheterization lab, for placement of a temporary pacemaker. Soon after he arrived he became asystolic. He needed CPR and defibrillation x1), and placement of a temporary pacemaker. This was initially set at a rate of 80. Attempts were then made to intubate the patient. The patient then underwent a left heart catheterization which demonstrated the following: Calcified left main coronary artery with distal 40% stenosis: Left anterior descending artery severely calcified with proximal 50 to 60% stenosis and distal small vessel disease and left to right collaterals. Left circumflex artery with 2 areas of 90% stenosis noted. Ramus intermedius with moderately severe disease. Dominant right coronary artery which is totally occluded in the midsegment with normal collaterals. The ejection fraction by echocardiogram was noted to be approximately 45%. The patient was then continued on intravenous Levophed and arrangements were made to transfer the patient to a tertiary care facility for further management. Above discussed with family and physicians.
--- NOTE | 2021-02-08 17:54 | EKG12_ITS ---
Test Reason : 3RD DEGREE Blood Pressure : / mmHG Vent. Rate : 031 BPM Atrial Rate : 066 BPM P-R Int : 276 ms QRS Dur : 158 ms QT Int : 612 ms P-R-T Axes : 049 117 265 degrees QTc Int : 439 ms Sinus rhythm with high grade AV block Premature atrial complexes Right bundle branch block Left posterior fascicular block Bifascicular block T wave abnormality, consider inferior ischemia Abnormal ECG When compared with ECG of 08-FEB-2021 17:54, MANUAL COMPARISON REQUIRED, DATA IS UNCONFIRMED Confirmed by STACEY CAO, MARGARITO ([id number]), television news video editor BRIGIDA HARGROVE ([id number]) on 02/10/2021 10:49:58 AM Referred By: NOLBERTO Confirmed By:MARGARITO IBARRA MD
--- NOTE | 2021-02-08 17:54 | EKG12_ITS ---
Test Reason : 3RD DEGREE Blood Pressure : / mmHG Vent. Rate : 031 BPM Atrial Rate : 031 BPM P-R Int : 276 ms QRS Dur : 158 ms QT Int : 610 ms P-R-T Axes : 010 116 -81 degrees QTc Int : 438 ms Intermittent high grade AV Block Right bundle branch block T wave abnormality, consider inferior ischemia Abnormal ECG When compared with ECG of 08-FEB-2021 14:33, MANUAL COMPARISON REQUIRED, DATA IS UNCONFIRMED Confirmed by MARGARITA CAO, GABRIEL ([id number]), traffic officer HAIDER PEREA ([id number]) on 02/15/2021 7:58:36 AM Referred By: NOLBERTO Confirmed By:GABRIEL AVILA MD
--- NOTE | 2021-02-08 18:30 | NURSING ---
pt transferred to mobile lab technician via mobile lab technician staff at this time, levo running at 20 mcg/min, on bipap 80%, pads on.
--- NOTE | 2021-02-08 19:49 | PCM.PN.BLA ---
Progress Note CODE BLUE called overhead. Patient went down to the Unclaimed Property Officer for placement of temporary pacemaker. He went into asystole and cardiac arrest. CPR was initiated with chest compressions. He was given IV epinephrine. Dr. Machado attempted transvenous pacer placement which was successful. I attempted intubation with the laryngoscope but I could not intubate. I tried the glide scope and I was able to see the vocal cords but could not put the tube through. Patient was given IV Versed and succinylcholine. Dr. Roblero. from ED attempted intubation and that was successful. Cardiac catheterization done afterwards and patient was found to have multivessel disease. Decision was made by cardiology to transfer the patient to a tertiary care center for CABG. Currently, patient is on transvenous pacer, blood pressure is maintained, he is on mechanical ventilation. Plan: Transfer back to ICU, continue vent settings, IV propofol for sedation, insert Gloria catheter, stat CBC and CMP, serial cardiac enzymes, start IV fluids, awaiting bed availability at [facility]. STROKE Vital Signs/Narrative: Vital Signs Temp Pulse Resp BP Pulse Ox 02/08/21 18:15 34 L 86/42 L 02/08/21 18:00 28 L 20 H 94/61 93 02/08/21 17:32 33 L 21 H 104/46 L 93 02/08/21 17:27 35 L 18 98/46 L 95 02/08/21 17:01 97.1 F L 36 L 21 H 104/46 L 95 02/08/21 16:45 37 L 21 H 84/58 L 90 02/08/21 16:35 40 L 24 H 95
--- NOTE | 2021-02-08 20:07 | ED.VISSUMM ---
- ER Visit Summary Date of Service: 02/08/21 I was called to the Call Center Representative by cardiology staff to assist with an emergent intubation. Patient had been taken to the Call Center Representative for placement of a pacemaker. Patient suffered a cardiac arrest while there. On my arrival to the Call Center Representative patient was being bagged by respiratory therapy staff. Patient had been giving sedated medicine and was given succinylcholine just prior to my intubation attempt. Welcome scope with a 3 blade was used to visualize the cords. A 7.5 tube was placed through the cords. Good color change was noted. Lung sounds were present bilaterally. Fluoroscope was used to visualize placement of the ET tube above the sahara. Patient was left in care of cardiology and hospital staff. Procedure time: 10 minutes. This note was generated with [employer] dictation software. It may contain incorrect words, spelling, and punctuation that were not noted in review of the chart prior to signing ED Disposition - Plan for ED Patient: Disposition: Acute Care Hospital [facility] Diagnosis: Hypothermia, Bradycardia, Hypoxia, RENETTA (acute kidney injury)
--- NOTE | 2021-02-08 20:10 | NURSING ---
Pt in recyclable materials collector for pacemaker insertion. Determination for transfer to [facility] has been made by cardiology. This nurse has not had opportunity to assess patient due to pt being off floor, and in recyclable materials collector, at time of shift change. Updated Daughter, Eloina, on transfer orders. Family in agreement with plan of care.
--- NOTE | 2021-02-08 20:18 | CL.D_ITS ---
Patient Name: ADARSH CRUZ Study Date: 02/08/2021 Performing: Brian Machado MD Ht: 70.07 inches 178 cm : 1950 Wt: 235.89 lbs 107 kg Age: 70 Gender: male BSA: 2.24 PROCEDURE(S) PERFORMED [id number] INTRAVENTRICULAR PACING CLINICAL PROFILE AND INDICATIONS Indications: Suspected CAD Heart Failure: NYHA Class: 3, Newly Diagnosed: Yes, Heart Failure Type: Systolic Stress/Imaging Stress/Image Study Performed: No CAD Presentations: Symptom unlikely to be ischemic. CONCLUSIONS Aortic Valve Stenosis- Mild Severe triple-vessel disease with calcification of the left main and the left anterior descending art donna. There is moderate distal left main coronary disease and moderate diffuse LAD disease. High-gra de sequential left circumflex artery stenosis noted. Moderate disease in the ramus intermedius. The right coronary artery is totally occluded in the midsegment with homocollaterals. Left to right col laterals distally as seen. Successful establishment of temporary transvenous cardiac pacing with current settings of Mode: Async hronus , Rate: 80 bpm , Output: 10 mA RECOMMENDATIONS Surgery consult for coronary revascularization Patient is to be transferred for further tertiary medical care. This would include but not limited t o consideration for bypass surgery. DESCRIPTION OF PROCEDURE The patient arrived to the procedure lab. The risks and benefits of the procedure as well as a full d escription of our services here and current unavailability of surgical backup were fully explained to the patient and/or their significant other prior to the catheterization. The Timeout was completed, verifying the correct patient and procedure. The patient's procedural site was prepped and draped in the usual fashion. Local anesthetic was given subcutaneously to right groin region with Lidocaine 2%. Using a modified Seldinger technique, arterial access was obtained via the right femoral artery, a 5 Fr sheath was inserted. Left Coronary Artery selective angiography was performed in multiple views u sing a 5 Fr. JL4 catheter. Right Coronary Artery selective angiography was then performed in multiple views using a 5 Fr. 3DRC (Billy) catheter. CORONARY ANGIOGRAPHY DOMINANCE: Right Dominant LEFT HEART ASSESSMENT Left Ventricular Ejection Fraction: by Echo 45 % Anterior Hypokinesis - Moderate Depressed Left Ventricular systolic function LEFT MAIN: Severe calcification, 40 % Stenosis LEFT ANTERIOR DESCENDING ARTERY: PROX LAD: Severe calcification MID LAD: Moderate luminal irregularities up to 50% CIRCUMFLEX ARTERY: PROX CIRC: 90 and 90 % Stenosis RAMUS: Mild luminal irregularities less than 30% RIGHT CORONARY ARTERY: MID RCA: is occluded COMPLICATIONS PROCEDURE MEDICATIONS Versed 4 mg IV Epinephrine 1mg/10ml 1 amp 02/08/2021 18:47:43 SUMMARY OF HEMODYNAMIC DATA Time AIR REST Art 95/52 (66) 19:17:24 AO 79/60 (69) SA 19:29:35 Art 100/53 (69) 19:29:35 Signed By Brian Machado MD On 02/08/2021 20:17:48 Brian Machado MD
[2021-02-08 20:26] LABS: Base Excess -6 mmol/L (-2 to +2); Bicarbonate 19.5 mmol/L (22-26); Blood Gas Specimen Type ART; FI02 100; Mode AC; O2 Delivery Device Adult Vent; PEEP 10; PO2 47 mmHG (75-100); RR 20; SITE Art Line; SO2 81 % (95-99); Total Carbon Dioxide 21 mmol/L; Vt 600; pCO2 35.2 mmHg (35-45); pH 7.35 (7.35-7.45)
--- NOTE | 2021-02-08 20:31 | NURSING ---
Chart has been printed off and tubed to forestry farm laborer. Mehul, RN states they have completed the transfer paperwork. Dr. Machado has spoken with family and transfer is confirmed for [facility].
--- NOTE | 2021-02-09 06:56 | DS.PCM_ITS ---
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 Symptomatic bradycardia Acute hypoxic respiratory failure Bilateral pleural effusion Acute kidney injury Bilateral leg cellulitis/ulcers - Secondary Discharge Diagnosis Chronic Problems: Chronic Problems CAD (coronary artery disease) (Chronic) CKD (chronic kidney disease) (Chronic) Hypertension (Chronic) Diabetes mellitus (Chronic) Redness (Chronic) right lower leg Swelling of joint of right ankle or foot (Chronic) Blister of right foot (Chronic) Hospital Course and Treatment Imaging Results: Clinical Impression(s) from Imaging Studies Chest X-Ray 02/08/21 06:12 IMPRESSION: Bilateral pleural effusions with overlying atelectasis or infiltration in the lower lung mcduffie. Interstitial prominence, possibly representing CHF. Cardiomegaly. Electronically Signed: Manpreet Adair MD at 7:52 EDT , Service support , Brain CT 02/08/21 06:56 IMPRESSION: Chronic involutional changes of the brain. Electronically Signed: Ryan Wilcox MD at 8:23 EDT , Service support , Chest CTA 02/08/21 06:56 IMPRESSION: Moderate sized pleural effusions with bibasilar infiltrate/compressive atelectasis superimposed on mild degree of CHF. No evidence of pulmonary embolism. 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 Electronically Signed: Ryan Wilcox MD at 9:53 EDT , Service support , Echocardiogram 02/08/21 11:51 Interpretation Summary Normal LV size. The estimated ejection fraction is 45 %. Mild global left ventricular systolic dysfunction. Stage 1 diastolic dysfunction. Moderate focal aortic valve calcification. Mean aortic valve gradient 20 mmHg. Mild (1+) aortic valve insufficiency. Contrast injection was performed. _ Ordering Physician: Monica López Referring Physician: Dallas Nance M.D. Performed By: Cara Rashid RDCS Chest X-Ray 02/08/21 16:48 IMPRESSION: Right PICC terminates in the distal superior vena cava with no complication of line placement. Improving congestive heart failure. Electronically Signed: Leonor Johansen MD at 17:58 EDT , Service support , Pulmonology Cardiology Operations: None Procedures: - - temporary pacemaker placement Summary of Care Provided: The patient is a 70 year old M with past medical history of CAD, Type 2 DM, hypertension, CKD, gets most of his care in the [facility] comes in with progressive shortness of breath ongoing for 2 months, worse in the last couple of days. Patient reportedly had a sick contact who had Covid in September. He never got tested but he is suspected to have had Covid. He had progressively required oxygen 3 L. Patient followed up with his primary care doctor via televisit and was diagnosed with anasarca and started on doxycycline for lower extremity cellulitis. He came to the hospital with progressive shortness of breath. His vitals in the ED showed temperature of 84.9F, heart rate 36, blood pressure 106/81, respiratory 20, SPO2 87% on room air. WBC count 6.7, hemoglobin 10.6, platelet count 125, INR 1.2, sodium 143, potassium 5.0, chloride 112, bicarbonate 29, BUN 54, creatinine 1.69, lactic acid 1.1, q. 100, troponins negative, BNP up is 1083, TSH 6.83, T4 1.02, free T3 1.4, cortisol 34.1, UA unremarkable. He was admitted to the ICU and managed with a bear hugger. He had persistent hypothermia. He was found also to be hypotensive, requiring use of dobutamine which was later changed to dopamine. He got a PICC line placed. He also developed episodes of bradycardia going into the 20s, a transient episode of A. fib. Patient remained asymptomatic at that time. Cardiology was consulted. Emergent 2D echo showed EF of 45%, stage I diastolic dysfunction. Patient was started on IV hydrocortisone. Broad-spectrum antibiotics were continued. Wound RN was consulted. He also received a dose of Lasix but that had to put on hold on account of hypotension. A decision was made by cardiology to put in a temporary pacemaker. On the way to the cardiac hemodialysis lab technician to get a pacemaker placed, patient had a cardiopulmonary arrest. He reportedly went into asystole. Chest compressions were started with return of spontaneous circulation. Patient emergently got a temporary pacemaker placed. He was also emergently intubated. Subsequent cardiac cath revealed severe multivessel disease. Patient was subsequently transferred to [facility]. Patient Problems: Active and Suspected Problems (Last Updated 02/09/21 @ 07:47 by Maranda Berg) Hypothermia (Acute) Bradycardia (Acute) Hypoxia (Acute) RENETTA (acute kidney injury) (Acute) Bilateral pleural effusion (Acute) Acute respiratory failure with hypoxia (Acute) Subjective: See H & P Objective: See H & P - Physical Exam Vitals/I&O's: Vital Signs Temp Pulse Resp BP Pulse Ox 97.1 F L 82 18 86/42 L 96 02/08/21 17:01 02/08/21 20:17 02/08/21 20:17 02/08/21 18:15 02/08/21 20:17 Oxygen Flow Rate (L/min) 6 Oxygen Delivery Method Bi-pap Weight: 106.6 kg Body Mass Index (BMI) 33.7 Finger Stick Blood Glucose 81 Intake and Output for Last 24 Hours 02/07/21 02/08/21 02/09/21 23:59 23:59 23:59 Intake Total 2712.1825 / 2712.1825 Output Total 675 / 675 Balance 2037.1825 / 2037.1825 Microbiology Past 72 Hours 02/08/21 08:47 Mucosa - Nose SARS-CoV-2 Antigen (Rapid) - Final Laboratory Results 02/08/21 06:05: B-Natriuretic Peptide 1083.9 H 02/08/21 06:05: Free T4 1.02 02/08/21 06:05: Total Creatine Kinase 100 02/08/21 06:05: POC Glucose 50 L 02/08/21 06:05: PT 14.7, INR 1.2, APTT 46.6 H 02/08/21 06:05: Free T3 pg/dL 1.4 L 02/08/21 06:44: POC Glucose 81 02/08/21 07:35: POC Glucose 64 L 02/08/21 08:38: POC Glucose 143 H 02/08/21 09:45: POC Glucose 155 H 02/08/21 11:00: Troponin I < 0.015 02/08/21 11:11: POC Glucose 139 H 02/08/21 13:25: Troponin I 0.032 02/08/21 13:25: Magnesium 2.8 H 02/08/21 13:45: Cortisol 34.10 H 02/08/21 17:29: POC Glucose 95 02/08/21 17:30: Troponin I 0.681 H* 02/08/21 20:09: Specimen Type ART, Sample Site Art Line, pH 7.35, Bicarbonate Actual 19.5 L, Total CO2 21, Base Excess -6 L, O2 Saturation 81 L, O2 % 100, ABG pCO2 35.2, ABG pO2 47 L, Respiration Rate 20, O2 Delivery Device Adult Vent, Vent Mode AC, Tidal Volume 600, POC PEEP 10 Home Medications: Medications to take at Discharge Amlodipine [Norvasc] 5 mg PO DAILY 02/08/21 Atenolol 100 mg PO DAILY 02/08/21 Atorvastatin Calcium [Lipitor] 20 mg PO QHS 02/08/21 Doxycycline 100 mg PO BID 02/08/21 Enalapril Maleate 20 mg PO DAILY 02/08/21 Furosemide [Lasix] 20 mg PO DAILY 02/08/21 Insulin Glargine,Hum.rec.anlog [Basaglar Kwikpen U-100] 18 unit SQ QHS 02/08/21 Metolazone 5 mg PO DAILY 02/08/21 Sour Spicer Extract [Tart Spicer Extract] 250 mg PO DAILY PRN PRN 02/08/21 Primary Care Physician: Dallas Nance MD [Primary Care Provider] - Disposition: Acute care Hospital Minutes spent on discharge:: 65 Patient Condition:: Guarded Medical Necessity - Tobacco Use Smoking Status: Never smoker Tobacco Use: Non-smoker Meaningful Use Info Meaningful Use Diagnoses (Choose all that apply): CHF - CHF SUSAN/ARB ordered at discharge?: No Reason SUSAN/ARB not ordered?: Hypotension Documented LVEF (%): 45 Inpatient E&M: 59953 Disch Hosp
== END 2021-02-08 21:10 | disposition short-term general hospital (02) | DRG 80 ==
LOC: ED 07:40 → ICU 09:57
PROVIDERS: Emergency Medicine; Internal Medicine Critical Care Medicine; Admitting Provider Internal Medicine; Emergency Provider Emergency Medicine; PCP Internal Medicine; Visit Provider Internal Medicine
DX: E03.5 Myxedema coma (principal); J96.01 Acute respiratory failure with hypoxia; I50.43 Acute on chronic combined systolic (congestive) and diastolic (congestive) heart failure; I46.9 Cardiac arrest, cause unspecified; I13.0 Hypertensive heart and chronic kidney disease with heart failure and stage 1 through stage 4 chronic kidney disease, or unspecified chronic kidney disease; L03.116 Cellulitis of left lower limb; L03.115 Cellulitis of right lower limb; L97.921 Non-pressure chronic ulcer of unspecified part of left lower leg limited to breakdown of skin; L97.911 Non-pressure chronic ulcer of unspecified part of right lower leg limited to breakdown of skin; N17.9 Acute kidney failure, unspecified; J98.11 Atelectasis; I25.10 Atherosclerotic heart disease of native coronary artery without angina pectoris; E11.22 Type 2 diabetes mellitus with diabetic chronic kidney disease; N18.30 Chronic kidney disease, stage 3 unspecified; E11.51 Type 2 diabetes mellitus with diabetic peripheral angiopathy without gangrene; T68.XXXA Hypothermia, initial encounter; R00.1 Bradycardia, unspecified; E11.649 Type 2 diabetes mellitus with hypoglycemia without coma; E03.9 Hypothyroidism, unspecified; I35.0 Nonrheumatic aortic (valve) stenosis; I25.82 Chronic total occlusion of coronary artery; K59.00 Constipation, unspecified; I48.91 Unspecified atrial fibrillation; E66.9 Obesity, unspecified; E11.622 Type 2 diabetes mellitus with other skin ulcer; Z53.8 Procedure and treatment not carried out for other reasons; Z79.899 Other long term (current) drug therapy; Z79.4 Long term (current) use of insulin; Z68.33 Body mass index [BMI] 33.0-33.9, adult
CPT/HCPCS: 31500; 31720; 33210; 36569; 36600; 70450; 71045; 71275; 74177; 80053; 81001; 82533; 82550; 82803; 82962; 83605; 83735; 83880; 84439; 84443; 84481; 84484; 85025; 85610; 85730; 87040; 87077; 87086; 87088; 87186; 87426; 92950; 93005; 93306; 93454; 94002; 99152; 99153; 99284; J7030; J7040; J7050; Q9957; Q9967; A4216; C1894; C8929; J1940